=== PATIENT | male | born 1990 | race Caucasian/White ===

== ENCOUNTER 2017-03-22 07:36 | Emergency (ER) | payer OTHER ==
[2017-03-22 08:47] LABS: BASOPHIL 0.4 % (0-2); EOSINOPHIL 1.8 % (0-5); HCT 43.4 % (42.0-52.0); HGB 15.2 g/dl (13.2-18.0); LYMPHOCYTE 27.7 % (15-48); MCH 29.5 pg (25.0-31.0); MCV 84.3 fL (78.0-100.0); MONOCYTE 7.5 % (0-12); MPV 10.2 fL (6.0-9.5); NEUTROPHIL 62.6 % (41-80); PLT 266 K/uL (150-400); RBC 5.15 M/uL (4.70-6.00); RDW 12.6 % (11.5-14.0); WBC 7.7 K/uL (4.0-10.5)
[2017-03-22 08:55] LABS: INR 0.93 (0.9-1.2); PROTHROMBIN TIME 12.1 SECONDS (11.7-14.0)
[2017-03-22 08:56] LABS: PTT 28.3 SECONDS (23.2-31.4)
[2017-03-22 08:57] LABS: D-DIMER < 0.27 ug/mLFEU (0.00-0.41)
[2017-03-22 09:09] LABS: ALBUMIN 4.9 g/dL (3.5-5.0); BILIRUBIN - TOTAL 0.6 mg/dL (0.1-1.0); CKMB 2.12 ng/mL (0.97-4.94); GLOBULIN (CALCULATION) 2.3 g/dL (2.2-4.2); MAGNESIUM 2.17 mg/dL (1.40-2.10); MYOGLOBIN 27 ng/mL (26-65); POTASSIUM 3.8 mmol/L (3.5-5.1); PRO-BNP 12 pg/mL (0-125); TOTAL PROTEIN 7.2 g/dL (6.4-8.3); TROPONIN T < 0.010 ng/mL
== END 2017-03-22 09:38 | disposition home or self-care (01) ==
LOC: FER 07:36
PROVIDERS: Emergency Medicine
DX: R07.89 Other chest pain (principal)
CPT/HCPCS: 36415; 71020; 80053; 82550; 82553; 83735; 83874; 83880; 84484; 85025; 85379; 85610; 85730; 93005

== ENCOUNTER 2022-01-20 17:06 | Emergency (ER) | payer OTHER ==
[~2022-01-20 17:06] MED LIST: MELOXICAM15 MG PO
[2022-01-20 17:34] LABS: BASOPHIL 0.5 % (0-2); EOSINOPHIL 0.5 % (0-5); HCT 46.1 % (42.0-52.0); HGB 15.4 g/dl (13.2-18.0); MCHC 33.4 g/dL (32.0-36.0); MCV 86.8 fL (78.0-100.0); MONOCYTE 10.1 % (0-12); MPV 9.7 fL (6.0-9.5); NEUTROPHIL 58.6 % (41-80); NRBC 0; PLT 287 K/uL (150-400); RBC 5.31 M/uL (4.70-6.00); WBC 6.3 K/uL (4.0-10.5)
[2022-01-20 17:42] LABS: INR 0.95 (0.9-1.2); PROTHROMBIN TIME 12.1 SECONDS (11.8-13.4); PTT 26.4 SECONDS (24.4-34.7)
[2022-01-20 17:58] LABS: BILIRUBIN - TOTAL 0.5 mg/dL (0.2-1.0); BUN/CREAT RATIO (CALC) 14.4 RATIO; CREATININE 0.9 mg/dL (0.67-1.17); GLOBULIN (CALCULATION) 3.8 g/dL; POTASSIUM 3.9 mmol/L (3.5-5.1); TOTAL PROTEIN 7.8 g/dL (6.4-8.2)
== END 2022-01-20 20:40 | disposition home or self-care (01) ==
LOC: FER 17:06
PROVIDERS: Emergency Medicine
DX: R07.89 Other chest pain (principal); I10 Essential (primary) hypertension; Z79.899 Other long term (current) drug therapy; Z28.310 Unvaccinated for COVID-19
CPT/HCPCS: 36415; 71045; 80053; 83690; 84484; 85025; 85610; 85730; 93005; J1885

== ENCOUNTER 2022-03-29 19:07 | Emergency (ER) | payer OTHER ==
[2022-03-29 20:06] LABS: BASOPHIL 0.4 % (0-2); EOSINOPHIL 0.7 % (0-5); HCT 48.7 % (42.0-52.0); HGB 16.4 g/dl (13.2-18.0); LYMPHOCYTE 27.7 % (15-48); MCH 29.1 pg (25.0-31.0); MCHC 33.7 g/dL (32.0-36.0); MCV 86.5 fL (78.0-100.0); MONOCYTE 10.5 % (0-12); MPV 9.9 fL (6.0-9.5); NEUTROPHIL 60.3 % (41-80); NRBC 0; PLT 313 K/uL (150-400); RBC 5.63 M/uL (4.70-6.00); RDW 12.6 % (11.5-14.0); WBC 7.3 K/uL (4.0-10.5)
[2022-03-29 20:20] LABS: ALBUMIN 4.4 g/dL (3.4-5.0); BILIRUBIN - TOTAL 0.6 mg/dL (0.2-1.0); BUN/CREAT RATIO (CALC) 12.4 RATIO; CREATININE 1.05 mg/dL (0.67-1.17); GLOBULIN (CALCULATION) 3.4 g/dL; POTASSIUM 3.8 mmol/L (3.5-5.1); TOTAL PROTEIN 7.8 g/dL (6.4-8.2)
[2022-03-29 22:27] LABS: BILIRUBIN NEGATIVE (NEGATIVE); BLOOD NEGATIVE Ery/uL (NEGATIVE); CLARITY CLEAR (CLEAR); COLOR YELLOW (YELLOW); GLUCOSE (U) NORMAL (NORMAL); LEUKOCYTES NEGATIVE Leu/uL (NEGATIVE); NITRITE NEGATIVE (NEGATIVE); PROTEIN NEGATIVE (NEGATIVE); UROBILINOGEN 0.2 mg/dL (0.2-1.0)
[2022-03-29 22:34] LABS: BACTERIA TRACE; SQUAMOUS EPITHELIAL CELLS RARE
[2022-03-29] MEDS ORDERED: PEPCID AC20 MG PO (22:41)
[2022-03-29] MEDS ORDERED: ONDANSETRON ODT4 MG PO (22:41)
== END 2022-03-29 23:02 | disposition home or self-care (01) ==
LOC: FER 19:07
PROVIDERS: Physician Assistant
DX: R10.12 Left upper quadrant pain (principal); R11.2 Nausea with vomiting, unspecified; I10 Essential (primary) hypertension; E78.5 Hyperlipidemia, unspecified; Z79.899 Other long term (current) drug therapy
CPT/HCPCS: 36415; 80053; 81001; 83690; 85025; J2405; J7030; Q9967

== ENCOUNTER 2022-06-08 21:36 | Emergency (ER) | payer OTHER ==
[~2022-06-08 21:36] MED LIST changes: +ONDANSETRON ODT4 MG PO; +PEPCID AC20 MG PO
== END 2022-06-08 23:36 | disposition home or self-care (01) ==
LOC: FER 21:36
DX: S61.412A Laceration without foreign body of left hand, initial encounter (principal); I10 Essential (primary) hypertension; Z28.310 Unvaccinated for COVID-19; W31.9XXA Contact with unspecified machinery, initial encounter; Y92.009 Unspecified place in unspecified non-institutional (private) residence as the place of occurrence of the external cause
CPT/HCPCS: 73130